=== PATIENT | female | born 1995 | race Caucasian/White ===

== ENCOUNTER 2017-10-14 09:27 | Outpatient (CLI) | payer OTHER | END 2017-10-14 09:28 | disposition home or self-care (01) | LOC: CTENTCT 09:27 | PROVIDERS: ATTEND Otolaryngology Plastic Surgery within the Head & Neck | DX: J32.9 Chronic sinusitis, unspecified (principal) | CPT/HCPCS: 70486 ==

== ENCOUNTER 2017-11-06 09:45 | Day surgery (SDC) | payer BC ==
[2017-11-05 16:51] VITALS: BMI 22.4
[2017-11-06] MEDS ORDERED: Midazolam HCl 2 mg/2 ml Vial ONE (10:50)
[2017-11-06] MEDS ORDERED: Oxymetazoline HCl 0.05% ( 15 ML ) ONE ×2 (10:59→11:27)
[2017-11-06 11:06] LABS: BHCG - Serum Negative (NEGATIVE); Pregs Control Background? CLEAR/WHITE (CLR/WHITE); Pregs Control Bar Appear? YES (CONTROL BAR)
[2017-11-06] MEDS ORDERED: Fentanyl 100 MCG/2 ML VIAL ONE ×3 (11:26→13:06)
[2017-11-06] MEDS ORDERED: Ondansetron HCl/PF 4 MG/2 ML Vial ONE (11:26)
[2017-11-06] MEDS ORDERED: Meperidine HCl/PF 25 MG/ML VIAL ONE (11:26)
[2017-11-06] MEDS ORDERED: Bacitracin Zinc Ointment 30 gm TUBE ONE (11:27)
[2017-11-06] MEDS ORDERED: Lidocaine 1% w/Epinephrine 1:200K 30 ML VIAL ONE (11:27)
[2017-11-06] MEDS ORDERED: Famotidine/PF 20 mg/2ml Vial ONE (11:27)
[2017-11-06] MEDS ORDERED: Hydrocodone-Acetamin 15 ML UDCUP ONE (13:53)
--- NOTE | 2017-11-06 20:21 | OP ---
PREOPERATIVE DIAGNOSES: 1. Chronic rhinosinusitis. 2. Bilateral inferior turbinate hypertrophy. 3. Nasal obstruction. 4. Chronic adenotonsillitis. 5. Adenotonsillar hypertrophy. POSTOPERATIVE DIAGNOSES: 1. Chronic rhinosinusitis. 2. Bilateral inferior turbinate hypertrophy. 3. Nasal obstruction. 4. Chronic adenotonsillitis. 5. Adenotonsillar hypertrophy. PROCEDURES: 1. Bilateral endoscopic sinus surgery, total ethmoidectomies. 2. Bilateral endoscopic sinus surgery, maxillary antrostomies. 3. Bilateral inferior turbinate submucosal resection. 4. Tonsillectomy and adenoidectomy. SURGEON: Lex Roth M.D. ESTIMATED BLOOD: 50 mL COMPLICATIONS: None. ANESTHESIA: GETA. PROCEDURE IN DETAIL: After consent was obtained, the patient was identified, brought to the operating room, and placed on the operating table in the supine position. General endotracheal anesthesia and intravenous access was obtained and we proceeded with positioning the patient for oropharyngeal surge ry. Oropharyngeal exposure was obtained with a Warren-Jaylen mouth gag after a head drape was placed an d secured with a towel clip. The Warren-Jaylen mouth gag was then suspended from the Seals tray and [place] sabra elevation was achieved with a red rubber catheter. The right tonsil was addressed first. We used a curved Allis to grasp the tonsil and retract it medially as an anterior pillar incision was made. The retrotonsillar fascial plane was then established and blunt dissection was performed with the suc tion cautery. Blood vessels were anticipated, identified, and cauterized as they were encountered. Ul timately, dissection was carried to the posterior tonsillar pillar mucosa which was incised hemostati joselyn, as well as the base of tongue connection. The tonsil was then passed off as a specimen and ble eding points within the tonsillar bed were cauterized under direct visualization. We subsequently tur yony our attention to the contralateral side, where using a similar technique, a near identical proced ure was performed. Again, the tonsil was grasped and retracted medially with a curved Allis. The retr otonsillar fascial plane was established and while the anterior pillar was retracted medially, the he mostatic blunt dissection of the tonsil with a suction cautery was performed with blood vessels antic ipated, identified, and cauterized as they were encountered. Again, dissection continued to the base of tongue and posterior tonsillar pillar mucosa which was incised in a hemostatic fashion. The tonsi llar beds were then carefully inspected and bleeding points were identified and cauterized with a suc tion cautery. After this portion of the procedure, hemostasis was completely obtained. Under direct m irror visualization, we visualized the adenoid pad. Under direct mirror visualization, we removed the bulk of the adenoid tissue with the adenoid curette. We then packed the nasopharynx for an appropria te period of time with Jovi-Synephrine saturated tonsillar sponges. After a period of observation, we removed the pack. Under indirect mirror visualization, we obtained hemostasis and vaporization of res idual adenoid tissue with electrocautery. The patient's oral cavity was copiously irrigated with iced saline and subsequently suctioned. After completion of the procedure, the nasal cavity and oropharyn x were irrigated and suctioned as were the gastric contents. The patient was then awakened and transf erred to the recovery room where the patient remained in stable condition prior to discharge to [facility]. Following this, the 0 degree scope was advanced into the nasal cavity after the patient was placed in the beach chair position. 1% lidocaine with 1:100,000 epinephrine were injected into the middle tur binates and lateral nasal wall bilaterally as well as the inferior turbinates. Following this, using Lamar elevators, gently medialized the middle turbinates and the uncinate process was identified and was anteriorly fractured using the ball ended probe. Following this, the uncinate process was then removed using the straight microdebrider and upbiting Blakesley forceps. Following this, the ball en ded probe was used to palpate and identify the natural maxillary bilaterally. This maxillary ostia w as then gently widened using the straight Blakesley forceps and the straight microdebrider bilaterall y. Following this, the ethmoidal bulla was identified and was punctured on its medial and inferior a spect. The ethmoid bulla was then removed bilaterally. Following this, the grand lamella was identi fied and was punctured into the posterior ethmoidal cells. Working from posterior to anterior, the e thmoidal cells were opened in a mucosal-sparing technique. Following this, the upbiting microdebride r and 45 degree endoscope were used to further visualize the frontal recess cells and frontal sinus o stea. A curved microdebrider was then used to remove the adenoid tissue in this area and widened the frontal sinus ostia bilaterally. Following this, inferior turbinates were punctured on the anterior and inferior aspect with the submucosal microdebrider and submucosal resection was performed bilater ally at the anterior and inferior portions of the inferior turbinates. Following this, the inferior turbinates were then outfractured. The nasal cavity was irrigated. MeroPacks were placed in the mid dle meatus. Patient tolerated the procedure well.
== END 2017-11-06 14:27 | disposition home or self-care (01) ==
LOC: SDC 09:45
PROVIDERS: ATTEND Otolaryngology Plastic Surgery within the Head & Neck
PROC: 09TV8ZZ Resection of Left Ethmoid Sinus, Via Natural or Artificial Opening Endoscopic (ICD-10-PCS; principal; 2017-11-06)
PROC: 0CTPXZZ Resection of Tonsils, External Approach (ICD-10-PCS; principal; 2017-11-06)
PROC: 09TL8ZZ Resection of Nasal Turbinate, Via Natural or Artificial Opening Endoscopic (ICD-10-PCS; principal; 2017-11-06)
PROC: 099Q8ZZ Drainage of Right Maxillary Sinus, Via Natural or Artificial Opening Endoscopic (ICD-10-PCS; principal; 2017-11-06)
PROC: 09TU8ZZ Resection of Right Ethmoid Sinus, Via Natural or Artificial Opening Endoscopic (ICD-10-PCS; principal; 2017-11-06)
PROC: 099R8ZZ Drainage of Left Maxillary Sinus, Via Natural or Artificial Opening Endoscopic (ICD-10-PCS; principal; 2017-11-06)
PROC: 0CTQXZZ Resection of Adenoids, External Approach (ICD-10-PCS; principal; 2017-11-06)
DX: J32.9 Chronic sinusitis, unspecified (principal); J35.03 Chronic tonsillitis and adenoiditis; J34.3 Hypertrophy of nasal turbinates; G43.909 Migraine, unspecified, not intractable, without status migrainosus; G47.30 Sleep apnea, unspecified; F41.9 Anxiety disorder, unspecified; F32.9 Major depressive disorder, single episode, unspecified; Z99.89 Dependence on other enabling machines and devices; Z79.899 Other long term (current) drug therapy; Z98.818 Other dental procedure status
CPT/HCPCS: 84703; 85014; 88304; J0131; J2175; J2250; J2405; J3010; S0028